=== PATIENT | female | born 1970 | race Caucasian/White ===

== ENCOUNTER 2016-12-10 07:14 | Day surgery (SDC) | payer BC ==
[2016-12-10 08:11] VITALS: BMI 31.9
[2016-12-10] MEDS ORDERED: PROPOFOL 20 ML ONE ×3 (08:24)
[2016-12-10 10:22] VITALS: BP 108/52; PULSE 62; TEMP 98.2
--- NOTE | 2016-12-13 13:12 | PATH ---
Surgical Pathology Report Patient Name: JAMIE SINGLETON [facility]. Rec. #: [id number] /Age/Gender: 1970 (Age: 46) / F Account: [id number] Location: U-ENDOSCOPY Taken: 12/10/2016 Received: 12/10/2016 Reported: 12/13/2016 Physicians: Emile Roa M.D. Specimen(s) Received A: SIGMOID COLON POLYP B: TRANSVERSE COLON POLYPS Clinical History Family history of adenomatous polyps, screening colonoscopy Colon polyps Final Diagnosis A. COLON, SIGMOID, POLYP, POLYPECTOMY: TUBULAR ADENOMA. B. COLON TRANSVERSE, POLYPS, POLYPECTOMY: POLYPOID FRAGMENTS OF COLONIC MUCOSA WITH PROMINENT REACTIVE LYMPHOID AGGREGATES AND SURFACE HYPERPLASTIC CHANGE. Electronically Signed Rakan Medina M.D. Gross Description A. Received in formalin, labeled "sigmoid colon polyp" is a mensah, irregular portion of soft tissue measuring 0.3 cm in greatest dimension. The specimen is submitted in toto in one cassette. B. Received in formalin, labeled "transverse colon polyps" are 4 mensah, irregular portions of soft tissue ranging from 0.1-0.3 cm in greatest dimension. The specimens are submitted in toto in one cassette. /12/10/201612/10/2016
== END 2016-12-10 10:25 | disposition home or self-care (01) ==
LOC: JASU-ENDO 07:14
PROVIDERS: ATTEND Internal Medicine Gastroenterology
PROC: 0DBL8ZX Excision of Transverse Colon, Via Natural or Artificial Opening Endoscopic, Diagnostic (ICD-10-PCS; 2016-12-10)
PROC: 0DBN8ZX Excision of Sigmoid Colon, Via Natural or Artificial Opening Endoscopic, Diagnostic (ICD-10-PCS; principal; 2016-12-10 08:30)
DX: Z12.11 Encounter for screening for malignant neoplasm of colon (principal); Z83.71 Family history of colonic polyps; D12.3 Benign neoplasm of transverse colon; D12.5 Benign neoplasm of sigmoid colon; K64.8 Other hemorrhoids
CPT/HCPCS: 88305-TC